=== PATIENT | female | born 1975 ===

== ENCOUNTER 2021-12-16 08:03 | Outpatient (CLI) | payer OTHER | END 2021-12-16 08:18 | disposition home or self-care (01) | LOC: NUCLEAR 08:03 | DX: I80.00 Phlebitis and thrombophlebitis of superficial vessels of unspecified lower extremity (principal); I73.89 Other specified peripheral vascular diseases ==

== ENCOUNTER 2022-03-04 08:14 | Outpatient (CLI) | payer OTHER | END 2022-03-04 08:20 | disposition home or self-care (01) | LOC: MAMO-SONO 08:14 | PROVIDERS: ATTEND Obstetrics & Gynecology | DX: N60.11 Diffuse cystic mastopathy of right breast (principal); N60.12 Diffuse cystic mastopathy of left breast ==

== ENCOUNTER → 2022-03-19 08:30 | Outpatient (CLI) | payer OTHER | END | disposition home or self-care (01) | LOC: LAB 08:30 | PROVIDERS: ATTEND Obstetrics & Gynecology | DX: I10 Essential (primary) hypertension (principal); E78.49 Other hyperlipidemia; E03.8 Other specified hypothyroidism; N30.00 Acute cystitis without hematuria; E55.9 Vitamin D deficiency, unspecified ==

== ENCOUNTER 2022-10-10 09:28 | Emergency (ER) | payer OTHER ==
[~2022-10-10] VITALS: Ht 167.6 cm; Wt 69.4 kg
== END 2022-10-10 16:18 ==
LOC: ER 09:28
DX: J06.9 Acute upper respiratory infection, unspecified (principal); Z20.822 Contact with and (suspected) exposure to COVID-19

== ENCOUNTER 2022-10-13 09:19 | Outpatient (CLI) | payer OTHER | END 2022-10-13 09:21 | disposition home or self-care (01) | LOC: LAB 09:19 | DX: A49.3 Mycoplasma infection, unspecified site (principal) ==

== ENCOUNTER 2024-03-21 11:45 | Outpatient (CLI) | payer OTHER ==
[2024-03-23 06:04] LABS: HEPATITIS A ANTIBODY IGG Negative (Negative); HEPATITIS B SURFACE ANTIBODY Non Reactive (.); HEPATITIS C VIRUS ANTIBODY Non Reactive (Non Reactive)
== END 2024-03-21 11:51 | disposition home or self-care (01) ==
LOC: LAB 11:45
DX: A64 Unspecified sexually transmitted disease (principal); B19.9 Unspecified viral hepatitis without hepatic coma